=== PATIENT | male | born 1960 | race Caucasian/White ===

== ENCOUNTER → 2019-06-15 | Outpatient (CLI) | payer OTHER | LOC: RAD 09:41 | DX: J98.4 Other disorders of lung (principal); Q67.6 Pectus excavatum ==

== ENCOUNTER → 2019-08-08 | Outpatient (CLI) | payer OTHER ==
[~2019-08-08] MED LIST: ALL DAY ALLERGY10 M3 PO; ASPIR 8181 MG PO; AWAKE200 MG PO; BREO ELLIPTA 11 EACH INH; CELEBREX 200 M200 M1 PO; COENZYME Q-10200 MG PO; EFFIENT10 MG PO; ERGOCAL2500 UNIT PO; FLEXERIL PO; FOLIC ACID1 MG PO; LEXAPRO20 MG PO; LIPITOR40 MG PO; MELATONIN3 M1 PO; METHOTREXATE 22.5 M1 PO; NEXIUM40 MG PO; TESTOSTERON100 MG/ML IM; TRAMADOL 50 MG50 MG PO; TYLOPHEN500 MG PO; WELLBUTRIN SR150 MG PO
== END | disposition home or self-care (01) ==
LOC: SJCVCIMAG 08:10
DX: I34.0 Nonrheumatic mitral (valve) insufficiency (principal); I07.1 Rheumatic tricuspid insufficiency; R07.9 Chest pain, unspecified; R06.02 Shortness of breath; K21.9 Gastro-esophageal reflux disease without esophagitis

== ENCOUNTER 2019-08-11 08:04 | Outpatient (CLI) | payer OTHER ==
[2019-08-11] VITALS (9 sets, daily range): BP systolic 119–151; BP diastolic 77–98
[~2019-08-11] VITALS: Ht 172.7 cm; Wt 79.3 kg
[2019-08-11 09:00] LABS: HEMATOCRIT 46.4 % (42.0-52.0); HEMOGLOBIN 15.5 gm/dL (14.0-18.0); MCH 32.6 pg (26.0-34.0); MCHC 33.4 g/dL (28.0-37.0); MCV 97.5 fL (80.0-100.0); RBC 4.76 mil/uL (4.50-6.00); WBC 8.3 thou/uL (4.0-11.0)
[2019-08-11 09:11] LABS: ANION GAP 8 mmol/L (7-16); BUN 21 mg/dL (7-18); CALCIUM 8.6 mg/dL (8.5-10.1); CHLORIDE 104 mmol/L (98-107); CO2 27 mmol/L (21-32); GLUCOSE 98 mg/dL (74-106); POTASSIUM 4.3 mmol/L (3.5-5.1); SODIUM 139 mmol/L (136-145)
[2019-08-11 09:17] LABS: CHOLESTEROL 227 mg/dL (<200); HDL CHOLESTEROL 42 mg/dL (>40); LDL CHOLESTEROL 156 mg/dL (<100); TC:HDL 5.4 Ratio (Not establshd); TRIGLYCERIDE 148 mg/dL (<150); VLDL 30 mg/dL (<40)
[2019-08-11] MEDS ORDERED: WELLBUTRIN SR150 MG PO ×2 (09:19)
[2019-08-11] MEDS ORDERED: AWAKE200 MG PO ×2 (09:20)
[2019-08-11] MEDS ORDERED: TYLOPHEN500 MG PO ×2 (09:22)
[2019-08-11] MEDS ORDERED: ALL DAY ALLERGY10 M3 PO ×2 (09:23)
[2019-08-11] MEDS ORDERED: COENZYME Q-10200 MG PO ×2 (09:26)
[2019-08-11] MEDS ORDERED: CELEBREX 200 M200 M1 PO ×2 (09:26)
[2019-08-11] MEDS ORDERED: FLEXERIL PO ×2 (09:27)
[2019-08-11] MEDS ORDERED: LEXAPRO20 MG PO ×2 (09:27)
[2019-08-11] MEDS ORDERED: NEXIUM40 MG PO ×2 (09:28)
[2019-08-11] MEDS ORDERED: FOLIC ACID1 MG PO ×2 (09:29)
[2019-08-11] MEDS ORDERED: BREO ELLIPTA 11 EACH INH ×2 (09:29)
[2019-08-11] MEDS ORDERED: METHOTREXATE 22.5 M1 PO ×2 (09:30)
[2019-08-11] MEDS ORDERED: MELATONIN3 M1 PO ×2 (09:30)
[2019-08-11] MEDS ORDERED: TESTOSTERON100 MG/ML IM ×2 (09:31)
[2019-08-11] MEDS ORDERED: TRAMADOL 50 MG50 MG PO ×2 (09:32)
[2019-08-11] MEDS ORDERED: ERGOCAL2500 UNIT PO ×2 (09:36)
--- NOTE | 2019-08-11 12:51 | CATHLAB ---
[facility] [place] [address] INVASIVE PROCEDURE REPORT Name: PRINCE ROBERTSON [facility]: [id number] Admission: 08/11/19 Attend Phys: Odell Valverde MD Discharge: Date of : 62 Report #: [id number] THIS REPORT FOR: cc: Suresh Green MD, Greg E. MD Park, Jin S. MD ~ APPROVED REPORT Study performed: 08/11/2019 09:24:13 Patient Details Patient Status: Out-Patient Room #: The patient is a 59 year-old male Event Personnel Odell Valverde Filter Tank Tender Helper Head, Hoang Che RN, Enmanuel, Fina Monitor, Mitchel Carroll Scrub Procedures Performed Art Access - R femoral artery* 94539 Initial Mod Sed Same Phys/QHP Gr5y 423429 75104 Mod Sed Same Phys/QHP Ea 191611 Left Heart Cath w/or w/o Coronaries [id number] [facility] JOHN Place w/wo Plasty Single LAD 863084 Hemostasis w/ Mynx Indication Dyspnea, Positive stress test, The patient presented with his anginal equivalent, dyspnea with exertion. Risk Factors Family History, Hypercholesterolemia Procedure Narrative The patient was brought electively to the Cardiac Catheterization Laboratory and was prepped and draped in a sterile manner. The Right Groin^ was infiltrated with 1% Lidocaine subcutaneous anesthesia. A PINNACLE 4FR Sheath #[id number] sheath was inserted into the RFA^. Coronary angiography was performed using coronary diagnostic catheters. The right coronary system was accessed and visualized with a JR 4 catheter. The left coronary system was accessed and visualized with a JL 4 catheter. The left ventricle was accessed and visualized with a Pigtail catheter. Left ventricular/Aortic Valve gradient assessed via catheter pullback. Pre-demployment femoral angiogram was performed . Closure device was deployed with a 6 Fr Mynx. The patient tolerated the procedure well and there were no complications [address] [address] INVASIVE PROCEDURE REPORT Name: PRINCE ROBERTSON SHEYLA Room #: 211-P [facility]#: [id number] Admission: 08/11/19 Attend Phys: Odell Valverde MD Discharge: Date of : 62 Report #: [id number] associated with the procedure. There was no hematoma. Intraoperative Conscious Sedation Sedation start time: 09:47 Case end Time: 10:29 Fentanyl 50 mcg Versed 2 mg Fluoro Time: 8.24 minutes Dose: DAP 8329.00 cGycm2 1167 mGy Contrast Type and Amount: Omnipaque 150 ml Coronary Angiography The patient's coronary anatomy is co- dominant. Diagnostic Cath Left Main The left main artery is a large-caliber vessel, patent with no flow-limiting lesions. LAD The LAD is a moderate size caliber vessel, traversing the anterior wall and wrapping around the apex. There is mild stenosis in the proximal segment. Just after the takeoff of the first diagonal artery, there is a severe occlusion in the mid LAD segment, 90%. Diagonal 1 This is a small to moderate size caliber vessel, patent with no flow-limiting lesions. Circumflex This is a moderate size caliber vessel, with mild disease proximally. This vessel is codominant. OM1 This is a small to moderate size caliber vessel, patent with no flow-limiting lesions. OM2 This is a small to moderate size caliber vessel, patent with no flow-limiting lesions. OM3 This is a small to moderate size caliber vessel, patent with no flow-limiting lesions. Right Coronary The RCA is a moderate size caliber vessel, patent with no flow-limiting lesions. R PDA This is a small to moderate size caliber vessel, patent with no flow-limiting lesions. Left Ventriculography Left Ventriculography was not performed. Ejection Fraction was >55% based off patient's Nuclear Cardiac Stress Test. An LVEDP was measured and there is no gradient across the outflow tract. Hemodynamics The aortic pressure is 144/93 mmHg with a mean of 117 mmHg. The left ventricular pressure is 140/18 mmHg with a mean of mmHg. The left ventricular end diastolic pressure is [address] [address] INVASIVE PROCEDURE REPORT Name: PRINCE ROBERTSON Room #: 211-P [facility] M.R.#: [id number] Admission: 08/11/19 Attend Phys: Odell Valverde MD Discharge: Date of : 62 Report #: [id number] PCI Technique Lesion Percutaneous coronary intervention was performed on the proximal/mid left anterior descending artery segment. The lesion stenosis prior to intervention was 90% with ANSELMO 3 flow. A VISTA 6FR XB 3.5 #[id number] Guide Catheter was used to engage the ostium. A Luge Wire .014 x 182CM #[id number] Interventional Guidewire was used to cross the lesion. BALLOON DILATION A Balloon catheter Euphora RX 2.5 x 15 #[id number] was inserted and inflated up to 8.00atm for 13seconds. Additional Inflation: 8.00atm for 12seconds. STENT DEPLOYMENT A drug-eluting stent RESOLUTE PAM RX 2.75 X 18 #[id number] was inserted and inflated up to 12.00atm for 33seconds. POST STENT DEPLOYMENT BALLOON DILATION A Balloon catheter Euphora NC RX 3.0 x 12 #[id number] was inserted and inflated up to 14.00atm for 12seconds. Final angiography reveals 0 % stenosis with ANSELMO 3 flow. Conclusion 1. Successful insertion of a drug-eluting stent into the proximal/mid LAD stenosis. 2. Codominant left circumflex artery, with mild disease proximally. 3. Normal LV systolic function. 4. Recommend dual antiplatelet therapy and aggressive risk factor management. <ELECTRONICALLY SIGNED> By: Odell Valverde MD 08/11/19 1250 49 49 Odell Valverde MD /INF
[2019-08-11] MEDS ORDERED: LIPITOR40 MG PO ×2 (13:17)
[2019-08-11] MEDS ORDERED: EFFIENT10 MG PO ×2 (13:17)
[2019-08-11] MEDS ORDERED: ASPIR 8181 MG PO ×2 (13:17)
--- NOTE | 2019-08-11 15:31 | NUR ---
TO UNIT FROM STUDENT UNION CONSULTANT BY PAUL, REPORT FROM VITOR HERRING. RIGHT GROIN SITE CDI, NONTENDER, SOFT, NO S/S HEMATOMA. PULSES 2+ BILAT. VSS; MILD HTN NOTED. SR PER TELE. WILL CONTINUE TO FOLLOW CLOSELY.
[2019-08-12 04:08] VITALS: BP 133/89
[2019-08-12 06:10] LABS: HEMATOCRIT 46.5 % (42.0-52.0); HEMOGLOBIN 15.3 gm/dL (14.0-18.0); MCH 32.8 pg (26.0-34.0); MCV 99.4 fL (80.0-100.0); RBC 4.67 mil/uL (4.50-6.00); RDW 15.4 % (10.5-14.5); WBC 11.2 thou/uL (4.0-11.0)
[2019-08-12 06:27] LABS: ALBUMIN 3.6 g/dL (3.4-5.0); CALCIUM 8.8 mg/dL (8.5-10.1); POTASSIUM 4.4 mmol/L (3.5-5.1); TOTAL BILIRUBIN 0.3 mg/dL (<0.1-1.0); TOTAL PROTEIN 6.9 g/dL (6.4-8.2)
--- NOTE | 2019-08-12 06:50 | NUR ---
ASSUME CARE 1900. PT/VITALS STABLE. INTERMITTENT BACK PAIN. UP AD LEEANN. RIGHT GROIN SITE CDI. ADEQUATE REST NOTED. ASSESSMENT CHARTED. PROGRESSING WELL WITH POC. JOHN TO PROXIMAL/MID LAD. SR ON MONITOR. PLAN IS POSSIBLE DISCHARGE TODAY. WILL CONITNUE TO MONITOR AND FOLLOWWITH POC
[2019-08-12 08:42] VITALS: BP 126/92
[2019-08-12 09:49] VITALS: BP 126/92
--- NOTE | 2019-08-12 10:55 | NUR ---
ASSUMED CARE OF PT AT SHIFT CHANGE. ASSESSMENT CHARTED. MEDS GIVEN PER SEP. VSS. NO C/O PAIN. PT A&OX4, GROIN SITE REMAINS SOFT WITH NO HEMATOMA, SLIGHT BRUISING. DISCHARGE ORDERS AND INSTRUCTIONS COMPLETE. PT LEFT VIA WHEELCHAIR WITH TO OWN CAR.
--- NOTE | 2019-08-16 12:42 | EKG ---
[facility] [place] [address] ELECTROCARDIOGRAM REPORT Name: PRINCE ROBERTSON Room #: DEP [facility].#: [id number] Admission: 08/11/19 Attend Phys: Odell Valverde MD Discharge: 08/12/19 Date of : 62 Report #: [id number] THIS REPORT FOR: cc: Suresh Green MD, Greg E. MD Lundgren,Jose Guadalupe Armstrong MD [facility] ~ THIS REPORT FOR: //name// [facility] Test Date: 2019-08-11 Test Time: 11:59:44 Pat Name: PRINCE ROBERTSON Department: Room: Gender: Composition Board Press Operator: Morena DERAS : 1960 Requested By: Odell Valverde Order Number: [id number] MD: Jose Guadalupe Garcia Measurements Intervals [place] Rate: 88 P: 33 HI: 146 QRS: -11 QRSD: 111 T: 33 QT: 372 QTc: 450 Interpretive Statements Sinus rhythm RSR' in V1 or V2, right VCD or RVH Compared to ECG 08/11/2019 08:45:42 No significant change was found Electronically Signed On 08-11-2019 17:30:51 DEVELOPMENTAL BEHAVIORAL PHYSICIAN by Jose Guadalupe Garcia [email or web address] <ELECTRONICALLY SIGNED> By: Jose Guadalupe Garcia MD, FAC 08/11/19 1730 1159 1159 Jose Guadalupe Garcia MD, FAC /EPI
--- NOTE | 2019-08-16 12:42 | EKG ---
[facility] [place] [address] ELECTROCARDIOGRAM REPORT Name: PRINCE ROBERTSON Room #: DEP [facility].#: [id number] Admission: 08/11/19 Attend Phys: Odell Valverde MD Discharge: 08/12/19 Date of : 62 Report #: [id number] THIS REPORT FOR: cc: Suresh Green MD, Greg E. MD Lundgren,Jose Guadalupe Armstrong MD [facility] ~ THIS REPORT FOR: //name// [facility] Test Date: 2019-08-12 Test Time: 07:53:34 Pat Name: PRINCE ROBERTSON Department: Room: 211 P Gender: M Bag Presser: REBECA : 1960 Requested By: Odell Valverde Order Number: [id number] MD: Jose Guadalupe Garcia Measurements Intervals [place] Rate: 81 P: 43 CA: 147 QRS: 0 QRSD: 115 T: 48 QT: 398 QTc: 462 Interpretive Statements Sinus rhythm Incomplete right bundle branch block Baseline wander in lead(s) V3 Compared to ECG 08/11/2019 11:59:44 No significant change was found Electronically Signed On 08-14-2019 7:23:07 POULTRY DRESSER by Jose Guadalupe Garcia [email or web address] <ELECTRONICALLY SIGNED> By: Jose Guadalupe Garcia MD, [facility] 08/14/19 0723 0753 [id number] Jose Guadalupe Garcia MD, [facility] /EPI
--- NOTE | 2019-08-16 12:42 | EKG ---
[facility] [place] [address] ELECTROCARDIOGRAM REPORT Name: PRINCE ROBERTSON Room #: DEP [facility]#: [id number] Admission: 08/11/19 Attend Phys: Odell Valverde MD Discharge: 08/12/19 Date of : 62 Report #: [id number] THIS REPORT FOR: cc: Suresh Green MD, Greg E. MD Lundgren,Jose Guadalupe Armstrong MD [facility] ~ THIS REPORT FOR: //name// [facility] Test Date: 2019-08-11 Test Time: 08:45:42 Pat Name: PRINCE ROBERTSON Department: Room: Gender: Roll Plugger Machine Operator: Morena DERAS : 1960 Requested By: Odell Valverde Order Number: [id number] MD: Jose Guadalupe Garcia Measurements Intervals [place] Rate: 95 P: 37 MD: 147 QRS: -10 QRSD: 109 T: 45 QT: 368 QTc: 463 Interpretive Statements Sinus rhythm RSR' in V1 or V2, right VCD No previous ECG available for comparison Electronically Signed On 08-11-2019 9:10:32 WELL HEAD PUMPER by Jose Guadalupe Garcia [email or web address] <ELECTRONICALLY SIGNED> By: Jose Guadalupe Garcia MD, [facility] 08/11/19 0910 0845 Jose Guadalupe Garcia MD, [facility] /EPI
== END 2019-08-12 11:29 | disposition home or self-care (01) ==
LOC: CATH 08:04 → 2N 12:30 → CATH 12:32
PROVIDERS: Internal Medicine Cardiovascular Disease
DX: R94.39 Abnormal result of other cardiovascular function study (principal); I25.110 Atherosclerotic heart disease of native coronary artery with unstable angina pectoris; E78.00 Pure hypercholesterolemia, unspecified; K21.9 Gastro-esophageal reflux disease without esophagitis; Z98.890 Other specified postprocedural states; Z79.899 Other long term (current) drug therapy; Z82.49 Family history of ischemic heart disease and other diseases of the circulatory system; Z98.52 Vasectomy status; Z87.891 Personal history of nicotine dependence; Z79.82 Long term (current) use of aspirin; Z87.01 Personal history of pneumonia (recurrent)
CPT/HCPCS: 10081

== ENCOUNTER → 2019-08-15 | Outpatient (CLI) | payer OTHER | LOC: SJCVCIMAG 13:23 | DX: M79.651 Pain in right thigh (principal) ==

== ENCOUNTER → 2020-08-26 | Outpatient (CLI) | payer BC | LOC: SJCVCIMAG 07:38 | PROVIDERS: ATTEND Internal Medicine Cardiovascular Disease | DX: I65.29 Occlusion and stenosis of unspecified carotid artery (principal) ==

== ENCOUNTER → 2020-11-11 | Outpatient (CLI) | payer BC | LOC: RAD 12:48 | PROVIDERS: ATTEND Internal Medicine Pulmonary Disease | DX: R07.81 Pleurodynia (principal) ==

== ENCOUNTER → 2020-11-12 | Outpatient (CLI) | payer BC ==
--- NOTE | ~2020-11-12 | SPIROMETRY ---
[facility] [place] [address] SPIROMETRY Name: MARCELOPRINCE CARRION Room #: [facility]#: [id number] Admission: 11/12/20 Attend Phys: Robin Jackson MD Discharge: Date of : 62 Report #: [id number] THIS REPORT FOR: //name// >> SPIROMETRY: (BTPS) Height: in cm Weight: lbs kg Exam Date: PRE-RX POST-RX PRED BEST %PRED BEST %PRED %CHG FVC LITERS . . . . . . FEV1 LITERS . . . . . . FEV1/FVC % . . . . . . XGO95-55% L/Sec . . . . . . PEF L/SEC . . . . . . FEF50/FIF50 UNITLESS . . . . . . >> INTERPRETATION/IMPRESSION: DOC #: [id number] cc: MD Robin Caro MD DATE OF SERVICE: 11/12/2020 Spirometric examination shows mildly reduced flows. There was no significant bronchodilator response. Lung volumes are normal with reduction in residual volume. Diffusion capacity is normal, corrected for alveolar volume. IMPRESSION: Mild restrictive ventilatory defect. Clinical correlation is recommended. MD FELICITA AlvarezK/SWA By: MD dayo Rojo
== END ==
LOC: PUL 09:26
PROVIDERS: ATTEND Internal Medicine Pulmonary Disease
DX: J98.4 Other disorders of lung (principal); R06.02 Shortness of breath

== ENCOUNTER → 2021-08-04 | Outpatient (CLI) | payer BC | LOC: SJCVCIMAG 07:09 | PROVIDERS: ATTEND Internal Medicine Cardiovascular Disease | DX: I25.10 Atherosclerotic heart disease of native coronary artery without angina pectoris (principal); I10 Essential (primary) hypertension; E78.00 Pure hypercholesterolemia, unspecified; R60.9 Edema, unspecified; R42 Dizziness and giddiness; Z88.8 Allergy status to other drugs, medicaments and biological substances; Z79.82 Long term (current) use of aspirin; Z79.899 Other long term (current) drug therapy; Z82.49 Family history of ischemic heart disease and other diseases of the circulatory system; Z87.891 Personal history of nicotine dependence ==